=== PATIENT | female | born 2000 | race Caucasian/White ===

== ENCOUNTER 2022-06-24 18:39 | Emergency (ER) | payer OTHER ==
[~2022-06-24] VITALS: Ht 165.1 cm; Wt 87.5 kg
[2022-06-24 18:42] VITALS: BP 139/57
[2022-06-24] MEDS ORDERED: FAMOTIDINE 20 MG TAB PO ONE (19:30)
--- NOTE | 2022-06-24 19:45 | NUR ---
RECEIVED IN BED 11 WITH C/O CP, NAUSEA AND BACK PAIN SINCE THIS AM. PT IS 20 WEEKS pmh: denies nka med: b6 vitamin, antinausea medication
--- NOTE | 2022-06-24 19:48 | NUR ---
PT TAKEN BED 11
[2022-06-24 20:26] LABS: BASOPHILS % (AUTO) 0.1 % (0.0-2.0); EOSINOPHILS # (AUTO) 0.1 K/uL (0-0.4); EOSINOPHILS % (AUTO) 0.7 % (0.0-4.0); HEMATOCRIT 34.4 % (36-48); HEMOGLOBIN 11.8 g/dL (12.0-16.0); LYMPHOCYTES # (AUTO) 2.1 K/uL (2.5-16.5); LYMPHOCYTES % (AUTO) 14.7 % (20.5-51.1); MEAN CORPUSCULAR HEMOGLOBIN 31 pg (27-31); MEAN CORPUSCULAR HGB CONC 34 g/dL (33-37); MEAN CORPUSCULAR VOLUME 90.2 fL (80-94); MONOCYTES # (AUTO) 0.7 K/uL (0.8-1.0); MONOCYTES % (AUTO) 5.2 % (1.7-9.3); NEUTROPHILS # (AUTO) 11.1 K/uL (1.8-7.7); NEUTROPHILS % (AUTO) 79.3 % (42.2-75.2); PLATELET COUNT (AUTO) 317 K/uL (140-450); RED BLOOD CELL COUNT(AUTO) 3.82 MIL/uL (4.20-5.40); RED CELL DISTRIBUTION WIDTH 13.9 % (11.6-13.7)
[2022-06-24 21:00] LABS: ALBUMIN 2.9 g/dL (3.4-5.0); ASPARTATE AMINOTRANSFERASE 11 U/L (15-37); CARBON DIOXIDE 25.7 mmol/L (21-32); CHLORIDE 104 mmol/L (98-107); CREATININE 0.6 mg/dL (0.6-1.3); GFR ARICAN-AMERICAN 159 mL/min (>90); GLUCOSE 114 mg/dL (74-106); POTASSIUM 3.7 mmol/L (3.5-5.1); SODIUM SERUM 140 mmol/L (136-145); TOTAL BILIRUBIN 0.2 mg/dL (0.0-1.0); UREA NITROGEN, BLOOD 8 mg/dL (7-18)
[2022-06-24] MEDS ORDERED: ACET-10509 PO (22:27)
[2022-06-24 22:35] VITALS: BP 128/63
--- NOTE | 2022-06-24 22:35 | NUR ---
Patient discharged with v/s stable. Written and verbal after care instructions given and explained. Patient alert, oriented and verbalized understanding of instructions. with steady gait. All questions addressed prior to discharge. ID band removed. Patient advised to follow up with PMD. Rx of TYLENOL given. Patient educated on indication of medication including possible reaction and side effects. Opportunity to ask questions provided and answered.
== END 2022-06-24 22:35 | disposition home or self-care (01) ==
LOC: MED 18:39
DX: J10.1 Influenza due to other identified influenza virus with other respiratory manifestations (principal); Z20.822 Contact with and (suspected) exposure to COVID-19; R07.89 Other chest pain
CPT/HCPCS: 36415; 71045; 80053; 84484; 85025; 85379; 93005; 99285

== ENCOUNTER 2022-10-21 13:19 | Inpatient (IN) | payer OTHER ==
[~2022-10-21] VITALS: Ht 165.1 cm; Wt 99.8 kg
[~2022-10-21 13:19] MED LIST: ACET-10509 PO
[2022-10-21] MEDS ORDERED: METHYLERGONOVINE 0.2 MG/ML AMP IM PRN (14:05)
[2022-10-21] MEDS ORDERED: CARBOPROST 250 MCG/ML AMP IM PRN (14:05)
[2022-10-21] MEDS: LACTATED RINGERS 1,000 ML IV SCH ×2 (15:50→22:14)
[2022-10-21] MEDS ORDERED: OXYTOCIN 20 UNITS/LR PREMIX 1,000 ML IV ONE (16:04)
[2022-10-21 16:22] LABS: BASOPHILS % (AUTO) 0.3 % (0.0-2.0); EOSINOPHILS # (AUTO) 0.1 K/uL (0-0.4); HEMATOCRIT 32.2 % (36-48); HEMOGLOBIN 10.8 g/dL (12.0-16.0); LYMPHOCYTES # (AUTO) 1.7 K/uL (2.5-16.5); LYMPHOCYTES % (AUTO) 13.7 % (20.5-51.1); MEAN CORPUSCULAR HEMOGLOBIN 29 pg (27-31); MEAN CORPUSCULAR HGB CONC 34 g/dL (33-37); MEAN CORPUSCULAR VOLUME 87.9 fL (80-94); MONOCYTES # (AUTO) 0.6 K/uL (0.8-1.0); MONOCYTES % (AUTO) 4.7 % (1.7-9.3); NEUTROPHILS # (AUTO) 9.7 K/uL (1.8-7.7); NEUTROPHILS % (AUTO) 80.3 % (42.2-75.2); PLATELET COUNT (AUTO) 263 K/uL (140-450); RED BLOOD CELL COUNT(AUTO) 3.67 MIL/uL (4.20-5.40); RED CELL DISTRIBUTION WIDTH 13.8 % (11.6-13.7); WHITE BLOOD COUNT (AUTO) 12.1 K/uL (4.8-10.8)
[2022-10-21] MEDS ORDERED: PNV1TABL5 PO (16:26)
[2022-10-21 16:46] LABS: APPEARANCE,URINE CLEAR (CLEAR); BILIRUBIN,URINE NEGATIVE (NEGATIVE); BLOOD, URINE TRACE-I (NEGATIVE); COLOR,URINE YELLOW (YELLOW); LEUKOCYTE ESTERASE ,URINE TRACE (NEGATIVE); NITRITE, URINE NEGATIVE (NEGATIVE); UGLUCOSE NEGATIVE (NEGATIVE)
[2022-10-21] MEDS: OXYTOCIN 20 UNITS in LACTATED RINGERS 1,000 ML IV SCH (16:48)
[2022-10-21 17:06] LABS: WBC,URINE 0-5 /HPF (0-5)
[2022-10-21 17:07] LABS: RBC,URINE 0-5 /HPF (0-5)
[2022-10-21] MEDS ORDERED: ONDANSETRON 4 MG/2 ML VIAL IVP PRN (17:10)
[2022-10-21] MEDS ORDERED: MORPHINE SULFATE 10 MG/ML VIAL IVP PRN (17:15)
[2022-10-21 17:54] LABS: ALBUMIN 2.8 g/dL (3.4-5.0); ANION GAP 13.9 (8-16); CARBON DIOXIDE 22.1 mmol/L (21-32); CREATININE 0.7 mg/dL (0.6-1.3); TOTAL BILIRUBIN 0.5 mg/dL (0.0-1.0)
[2022-10-21 18:49] LABS: URINE TOTAL PROTEIN 19.7 mg/dL (0-12)
[2022-10-21 18:52] LABS: PROTHROMBIN TIME 10.1 secs (10.8-13.4)
[2022-10-22] MEDS: LACTATED RINGERS 1,000 ML IV SCH ×4 (06:14→23:38)
[2022-10-22] MEDS ORDERED: OXYTOCIN 20 UNITS/LR PREMIX 1,000 ML IV ONE (17:45)
[2022-10-22] MEDS ORDERED: NIFEdipine 10 MG CAPLF ONE (18:08)
[2022-10-22] MEDS: OXYTOCIN 20 UNITS in LACTATED RINGERS 1,000 ML IV SCH (18:15)
[2022-10-22] MEDS ORDERED: ROPIVACAINE 0.2%/NS PREMIX 200 ML EPI SCH (22:50)
[2022-10-22] MEDS ORDERED: ROPIVACAINE 0.2%/NS PREMIX 200 ML EPI ONE (23:06)
[2022-10-23] MEDS: LACTATED RINGERS 1,000 ML IV SCH (05:42)
--- NOTE | 2022-10-23 09:10 | NUR ---
PATIENT HAS BEEN SCREENED AND CATEGORIZED LOW NUTRITION RISK. PATIENT WILL BE SEEN WITHIN 7 DAYS OF ADMISSION. 10/21/22-10/28/[address]
[2022-10-23] MEDS ORDERED: LIDOCAINE 1% 500 MG/50 ML VIAL ONE (09:12)
[2022-10-23] MEDS ORDERED: METHYLERGONOVINE 0.2 MG TAB PO PRN (09:55)
[2022-10-23] MEDS ORDERED: OXYTOCIN 10 UNITS/ML VIAL IM PRN (09:55)
[2022-10-23] MEDS ORDERED: HYDROcodone/APAP 5/325 MG 1 TAB TAB PO PRN ×2 (09:55)
[2022-10-23] MEDS ORDERED: METHYLERGONOVINE 0.2 MG/ML AMP IM PRN ×2 (09:55→18:45)
[2022-10-23] MEDS ORDERED: IBUPROFEN 600 MG TAB PO PRN (09:55)
[2022-10-23] MEDS ORDERED: bisacodyL 5 MG TABEC PO PRN (09:55)
[2022-10-23] MEDS ORDERED: IBUPROFEN 800 MG TAB PO PRN (09:55)
[2022-10-23] MEDS ORDERED: DOCUSATE SODIUM 100 MG GELCAP PO PRN (09:55)
[2022-10-23] MEDS ORDERED: SIMETHICONE 80 MG TAB.CHEW PO PRN (09:55)
[2022-10-23] MEDS ORDERED: MEASLES, MUMPS, AND RUBELLA 1 VIAL SQVAC ONE (09:55)
[2022-10-23] MEDS ORDERED: BENZOCAINE/MENTHOL 20%-0.5% 60 GM CAN TP PRN (09:55)
[2022-10-23] MEDS ORDERED: MORPHINE SULFATE 10 MG/ML VIAL IVP PRN (10:05)
[2022-10-23] MEDS ORDERED: OXYTOCIN 20 UNITS/LR PREMIX 1,000 ML IV ONE (10:08)
[2022-10-23] MEDS ORDERED: MEASLES, MUMPS, AND RUBELLA 1 VIAL SQVAC PRN (10:10)
[2022-10-23] MEDS ORDERED: OXYTOCIN 20 UNITS in LACTATED RINGERS 1,000 ML IV SCH (18:45)
[2022-10-23] MEDS ORDERED: LACTATED RINGERS 1,000 ML IV SCH (18:45)
[2022-10-23] MEDS ORDERED: ONDANSETRON 4 MG/2 ML VIAL IVP PRN (18:45)
[2022-10-24 08:37] LABS: HEMATOCRIT 23.4 % (36-48); HEMOGLOBIN 7.9 g/dL (12.0-16.0)
--- NOTE | 2022-10-31 16:45 | NUR ---
PT DC'S HOME ON 10/24/22 AT [id number]
== END 2022-10-24 16:35 | disposition home or self-care (01) | DRG 560 ==
LOC: MLD 13:19 → MFCC 10-23 11:25
PROVIDERS: ADMIT Obstetrics & Gynecology; ATTEND Obstetrics & Gynecology
PROC: 10E0XZZ Delivery of Products of Conception, External Approach (ICD-10-PCS; principal; 2022-10-23)
PROC: 0KQM0ZZ Repair Perineum Muscle, Open Approach (ICD-10-PCS; 2022-10-23)
PROC: 10907ZC Drainage of Amniotic Fluid, Therapeutic from Products of Conception, Via Natural or Artificial Opening (ICD-10-PCS; 2022-10-23)
PROC: 3E033VJ Introduction of Other Hormone into Peripheral Vein, Percutaneous Approach (ICD-10-PCS; 2022-10-23)
PROC: 3E0R3BZ Introduction of Anesthetic Agent into Spinal Canal, Percutaneous Approach (ICD-10-PCS; 2022-10-23)
PROC: 00HU33Z Insertion of Infusion Device into Spinal Canal, Percutaneous Approach (ICD-10-PCS; 2022-10-23)
DX: O14.94 Unspecified pre-eclampsia, complicating childbirth (principal); Z37.0 Single live birth; O13.4 Gestational [pregnancy-induced] hypertension without significant proteinuria, complicating childbirth; O70.1 Second degree perineal laceration during delivery; O77.0 Labor and delivery complicated by meconium in amniotic fluid; Z20.822 Contact with and (suspected) exposure to COVID-19; Z3A.37 37 weeks gestation of pregnancy; O90.81 Anemia of the puerperium
CPT/HCPCS: 36415; 51702; 59409; 76815; 80053; 81001; 82570; 84550; 85018; 85025; 85384; 85610; 85730; 86592; 86886; 86900; 86901; J2001; J2270; J2405; J2590; J2795; J7120; Q0092